=== PATIENT | female | born 1960 | race Two or more races ===

== ENCOUNTER 2024-10-31 19:22 | Emergency (ER) | payer MEDICARE, SELFPAY ==
[2024-10-31] VITALS (17 sets, daily range): BP systolic 128–158; BP diastolic 82–105; PULSE 67–94; TEMP 37.4; O2SAT 96–100; BMI 30.5
--- NOTE | 2024-10-31 19:28 | ECG_ITS ---
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
--- NOTE | 2024-10-31 19:51 | PC.NURSE ---
pt states after taking 2 Nitro CP has gone away.
[2024-10-31 20:20] LABS: Anion Gap 11.4; BUN Creatinine Ratio 8.6; Basophils Percent Auto 0.4 % (0.2-2.0); Calcium 9.2 mg/dL (8.5-10.1); Carbon Dioxide 29.2 mmol/L (21.0-32.0); Chloride 103 mmol/L (98-107); Estimated GFR (African America 47 (>=60 mL/min/1.73m^2); Estimated GFR (Non-African Ame 38 (>=60 mL/min/1.73m^2); Glucose 116 mg/dL (74-106); Hematocrit 41.9 % (36.0-48.0); Hemoglobin 13.8 g/dL (12.0-16.0); Immature Granulocytes Abs Auto 0.03 10^3/uL (0.00-0.03); Immature Granulocytes Pct Auto 0.4 % (0.0-0.5); Lymphocytes Absolute Auto 2.1 10^3/uL (1.2-3.8); Mean Corpuscular HGB Conc 32.9 g/dL (29.9-35.2); Mean Corpuscular Hemoglobin 28.1 pg (26.7-34.0); Mean Corpuscular Volume 85.3 fL (81.0-99.0); Monocytes Absolute Auto 0.5 10^3/uL (0.3-0.8); Monocytes Percent Auto 6.4 % (1.7-12.0); Neutrophils Percent Auto 65.8 % (43.0-75.0); Platelet Count 376 10^3/uL (150-450); Potassium 3.6 mmol/L (3.5-5.1); Red Blood Count 4.91 10^6/uL (4.20-5.40); Red Cell Distribution Width 14.6 % (11.0-15.0); Sodium 140 mmol/L (136-145); White Blood Count 7.6 10^3/uL (4.0-11.0)
[2024-10-31 20:21] LABS: Bilirubin Urine NEGATIVE (NEGATIVE); Blood Urine NEGATIVE (NEGATIVE); Clarity Urine CLEAR (CLEAR); Color Urine LT. YELLOW (YELLOW); Glucose Urine UA 250 mg/dL (NEGATIVE); Ketones Urine NEGATIVE (NEGATIVE); Leukocyte Esterase Urine MODERATE (NEGATIVE); Nitrite Urine NEGATIVE (NEGATIVE); Protein Urine NEGATIVE (NEG/TRACE); Specific Gravity Urine <=1.005 (1.005-1.025); Urobilinogen Urine 0.2 EU/dL (0.2-1.0); pH Urine 6.5 (5.0-9.0)
[2024-10-31 20:28] LABS: Ethanol <3 mg/dL; Troponin I High Sensitivity <4.0 pg/mL (4.0-51.3)
[2024-10-31 20:29] LABS: Bacteria Urine TRACE #/HPF (NONE SEEN); Mucus Urine NONE SEEN (NONE SEEN); RBC Urine 0-2 #/HPF (0-2)
[2024-10-31 20:30] LABS: Amorphous Sediment Urine FEW; Cast Seen? NONE SEEN #/LPF (NONE SEEN); Crystals Seen? Seen #/HPF (None Seen); Squamous Epithelial Cell Urine RARE #/LPF (NONE/RARE); Urine Culture Indicated YES-FRMC
[2024-10-31 20:34] LABS: Amphetamine Screen Urine NEGATIVE (NEGATIVE); Barbiturates Screen Urine NEGATIVE (NEGATIVE); Benzodiazepines Screen Urine NEGATIVE (NEGATIVE); Buprenorphine Screen Urine NEGATIVE (NEGATIVE); Cannabinoid Screen Urine POSITIVE (NEGATIVE); Cocaine Screen Urine NEGATIVE (NEGATIVE); Methadone Screen Urine NEGATIVE (NEGATIVE); Methamphetamines Screen Urine NEGATIVE (NEGATIVE); Opiate Screen Urine NEGATIVE (NEGATIVE); Oxycodone Screen Urine NEGATIVE (NEGATIVE); Phencyclidine Screen Urine NEGATIVE (NEGATIVE); Tricyclic Antidepressant Urine NEGATIVE (NEGATIVE)
--- NOTE | 2024-10-31 20:44 | ED_ITS ---
HPI HPI - General Adult General Chief complaint: Altered Mental Status Stated complaint: OTHER Time Seen by Provider: 10/31/24 19:23 Source: patient Mode of arrival: ambulance Limitations: no limitations History of Present Illness HPI narrative: 64-year-old female presents for chest pain. She was riding on a bus traveling from [place] to [place] and she developed this chest pain. She was walking up and down the aisle and somebody thought she seems confused. The patient states she was not confused but she had to go to the bathroom which she did. She had chest pain and she took 2 nitroglycerin and it went away completely and has not recurred. She has no complaints now. There was no injury. Related Data Home Medications ?Medication ?Instructions ?Recorded ?Confirmed amlodipine 2.5 mg tablet 2.5 mg PO DAILY 10/31/24 10/31/24 aspirin 81 mg tablet,delayed 81 mg PO DAILY 10/31/24 10/31/24 release (Adult Low Dose Aspirin) buspirone 30 mg tablet 30 mg PO BID 10/31/24 10/31/24 cyanocobalamin (vitamin B-12) 2,500 mcg sublingual DAILY 10/31/24 10/31/24 2,500 mcg sublingual tablet (Vitamin B-12) dapagliflozin propanediol 10 mg 10 mg PO DAILY 10/31/24 10/31/24 tablet (Farxiga) dicyclomine 20 mg tablet 20 mg PO BID 10/31/24 10/31/24 famotidine 20 mg tablet 20 mg PO BID 10/31/24 10/31/24 furosemide 20 mg tablet 20 mg PO DAILY 10/31/24 10/31/24 metformin 1,000 mg tablet 1,000 mg PO BID 10/31/24 10/31/24 methylphenidate HCl 72 mg 72 mg PO DAILY 10/31/24 10/31/24 tablet,extended release 24 hr mirtazapine 30 mg tablet 30 mg PO QPM 10/31/24 10/31/24 nitroglycerin 0.4 mg sublingual 0.4 mg sublingual Q5M PRN chest 10/31/24 10/31/24 tablet pain pregabalin 200 mg capsule (Lyrica) 200 mg PO TID 10/31/24 10/31/24 prochlorperazine maleate 10 mg 10 mg PO .Q4hrs PRN anxiety 10/31/24 10/31/24 tablet (Compazine) rosuvastatin 20 mg tablet 20 mg PO DAILY 10/31/24 10/31/24 semaglutide 2 mg/dose (8 mg/3 mL) 2 mg subcut QWEEK 10/31/24 10/31/24 subcutaneous pen injector (Ozempic) sennosides 17.2 mg tablet 17.2 mg PO DAILY 10/31/24 10/31/24 ziprasidone HCl 60 mg capsule 60 mg PO BID 10/31/24 10/31/24 (Geodon) Allergies Allergy/AdvReac Type Severity Reaction Status Date / Time gabapentin (From Neurontin) AdvReac Hallucinate Verified 10/31/24 19:34 Opioid HPI Opioid Management Most Recent Opioid Data: Ur Phencyclidine Scrn Negative (NEGATIVE) 10/31/24 19:35 10/15 03/10 Review of Systems ROS Narrative A ten point review of systems is negative except as noted above. PFSH PFSH Social History Little interest or pleasure in doing things: not at all Feeling down, depressed, or hopeless: not at all Exam Narrative Exam Narrative: Nurses note and vital signs reviewed and patient is not hypoxic. General: The patient appears well and in no apparent distress. Patient is resting comfortably on cart. Skin: Warm, dry, no pallor noted. There is no rash noted. Head: Normocephalic, atraumatic Eye: Normal conjunctiva, no drainage Ears, Nose, Mouth, and Throat: oral mucosa is moist. Nares patent. Cardiovascular: Regular Rate and Rhythm Respiratory: Patient is in no distress, no accessory muscle use, lungs are clear to auscultation, no wheezing, rales or rhonchi Back: non-tender GI: Soft and nontender Musculoskeletal: The patient has no evidence of calf tenderness, no pitting edema, symmetrical pulses noted bilaterally Neurological: A&O x4, normal speech Psychiatric: Cooperative Constitutional Vital Signs, click to edit/add: Last Vital Signs Temp 99.3 F 10/31/24 19:23 Pulse 67 10/31/24 21:00 Resp 29 H 10/31/24 20:20 BP 153/97 H 10/31/24 21:00 Pulse Ox 100 10/31/24 21:00 O2 Del Method Room Air 10/31/24 19:49 Course Vital Signs Vital signs: Vital Signs Temperature 99.3 F 10/31/24 19:23 Pulse Rate 83 10/31/24 19:23 Respiratory Rate 20 10/31/24 19:23 Blood Pressure 158/105 H 10/31/24 19:23 Pulse Oximetry 100 10/31/24 19:23 Oxygen Delivery Method Room Air 10/31/24 19:23 Temperature 99.3 F 10/31/24 19:23 Pulse Rate 67 10/31/24 21:00 Respiratory Rate 29 H 10/31/24 20:20 Blood Pressure 153/97 H 10/31/24 21:00 Pulse Oximetry 100 10/31/24 21:00 Oxygen Delivery Method Room Air 10/31/24 19:49 Medical Decision Making MDM Narrative Medical decision making narrative: Her workup including 2 sets of troponin is negative. She is asymptomatic and the rest of her workup is negative as well. Family friend is here to pick her up and take her home. He reports that she is acting normally. He is comfortable taking her home. Treatment diagnosis and follow-up were discussed with the patient and her friend. Differential Diagnosis Differential Diagnosis: Myocardial infarction, unstable angina, chest wall pain, anxiety Lab Data Lab results reviewed: Yes I reviewed the patient's lab results Labs: Lab Results 10/31/24 10/31/24 10/31/24 Range/Units 19:35 20:01 20:51 WBC 7.6 (4.0-11.0) 10^3/uL RBC 4.91 (4.20-5.40) 10^6/uL Hgb 13.8 (12.0-16.0) g/dL Hct 41.9 (36.0-48.0) % MCV 85.3 (81.0-99.0) fL MCH 28.1 (26.7-34.0) pg MCHC 32.9 (29.9-35.2) g/dL RDW 14.6 (11.0-15.0) % Plt Count 376 (150-450) 10^3/uL MPV 10.0 (9.5-13.5) fL Neut % (Auto) 65.8 (43.0-75.0) % Lymph % (Auto) 27.0 (20.5-60.0) % [place] % (Auto) 6.4 (1.7-12.0) % Eos % (Auto) 0.0 L (0.9-7.0) % Baso % (Auto) 0.4 (0.2-2.0) % Neut # (Auto) 5.0 (1.4-6.5) 10^3/uL Lymph # (Auto) 2.1 (1.2-3.8) 10^3/uL [place] # (Auto) 0.5 (0.3-0.8) 10^3/uL Eos # (Auto) 0.0 (0.0-0.7) 10^3/uL Baso # (Auto) 0.0 (0.0-0.1) 10^3/uL Abs Immat Gran (auto) 0.03 (0.00-0.03) 10^3/uL Imm/Tot Granulo (auto) 0.4 (0.0-0.5) % Sodium 140 (136-145) mmol/L Potassium 3.6 (3.5-5.1) mmol/L Chloride 103 (98-107) mmol/L Carbon Dioxide 29.2 (21.0-32.0) mmol/L Anion Gap 11.4 BUN 12.0 (7.0-18.0) mg/dL Creatinine 1.39 H (0.55-1.02) mg/dL Est GFR ( Amer) 47 L (>=60 mL/min/1.73m^2) Est GFR (Non-Af Amer) 38 L (>=60 mL/min/1.73m^2) BUN/Creatinine Ratio 8.6 Glucose 116 H (74-106) mg/dL Calcium 9.2 (8.5-10.1) mg/dL Troponin I High Sens <4.0 L <4.0 L (4.0-51.3) pg/mL Urine Color Lt. yellow (YELLOW) Urine Clarity Clear (CLEAR) Urine pH 6.5 (5.0-9.0) Ur Specific [place] <=1.005 A (1.005-1.025) Urine Protein Negative (NEG/TRACE) mg/dL Urine Glucose (UA) 250 A (NEGATIVE) mg/dL Urine Ketones Negative (NEGATIVE) mg/dL Urine Occult Blood Negative (NEGATIVE) Urine Nitrite Negative (NEGATIVE) Urine Bilirubin Negative (NEGATIVE) Urine Urobilinogen 0.2 (0.2-1.0) EU/dL Ur Leukocyte Esterase Moderate A (NEGATIVE) Urine RBC 0-2 (0-2) #/HPF Urine WBC 2-5 A (NONE SEEN) #/HPF Ur Squamous Epith Cells Rare (NONE/RARE) #/LPF Urine Crystals Seen A (None Seen) #/HPF Amorphous Sediment Few Urine Bacteria Trace A (NONE SEEN) #/HPF Urine Casts None seen (NONE SEEN) #/LPF Urine Mucus None seen (NONE SEEN) Ur Culture Indicated? Yes-[facility] [place] Urine Opiates Screen Negative (NEGATIVE) Ur Buprenorphine Scrn Negative (NEGATIVE) Ur Oxycodone Screen Negative (NEGATIVE) Urine Methadone Screen Negative (NEGATIVE) Ur Barbiturates Screen Negative (NEGATIVE) U Tricyclic Antidepress Negative (NEGATIVE) Ur Phencyclidine Scrn Negative (NEGATIVE) Ur Amphetamines Screen Negative (NEGATIVE) U Methamphetamines Scrn Negative (NEGATIVE) U Benzodiazepines Scrn Negative (NEGATIVE) Urine Cocaine Screen Negative (NEGATIVE) U Cannabinoids Screen Positive A (NEGATIVE) Ethanol Quant <3 mg/dL Imaging Data Chest x-ray, CT brain: Radiologist's impression: CT brain: Mild generalized brain volume loss consistent with age, no acute intracranial hemorrhage mass, infarct, or edema Chest x-ray: No acute process seen in the chest ECG Data Attestation: I personally reviewed and interpreted this ECG as follows: (EKG on my interpretation shows normal sinus rhythm with a rate of 81 and no acute change) Discharge Plan Discharge Chief Complaint: Altered Mental Status Clinical Impression: Chest pain Patient Disposition: Home, Self-Care Time of Disposition Decision: 21:32 Condition: Good Mode of Transportation: Private Vehicle Prescriptions / Home Meds: No Action Ozempic 2 mg/dose (8 mg/3 mL) pen injector 2 mg subcut QWEEK mirtazapine 30 mg tablet 30 mg PO QPM dapagliflozin propanediol [Farxiga] 10 mg tablet 10 mg PO DAILY dicyclomine 20 mg tablet 20 mg PO BID pregabalin [Lyrica] 200 mg capsule 200 mg PO TID metformin 1,000 mg tablet 1,000 mg PO BID rosuvastatin 20 mg tablet 20 mg PO DAILY furosemide 20 mg tablet 20 mg PO DAILY ziprasidone HCl [Geodon] 60 mg capsule 60 mg PO BID Rx Instructions: give with food (meal/snack) amlodipine 2.5 mg tablet 2.5 mg PO DAILY aspirin [Adult Low Dose Aspirin] 81 mg tablet,delayed release (DR/EC) 81 mg PO DAILY cyanocobalamin (vitamin B-12) [Vitamin B-12] 2,500 mcg tablet, sublingual 2,500 mcg sublingual DAILY sennosides 17.2 mg tablet 17.2 mg PO DAILY prochlorperazine maleate [Compazine] 10 mg tablet 10 mg PO .Q4hrs PRN (Reason: anxiety) buspirone 30 mg tablet 30 mg PO BID methylphenidate HCl 72 mg tablet extended release 24hr 72 mg PO DAILY famotidine 20 mg tablet 20 mg PO BID nitroglycerin 0.4 mg tablet, sublingual 0.4 mg sublingual Q5M PRN (Reason: chest pain) Print Language: Cymraes Instructions: Chest Pain (ED) Referrals: Physician,Non-Staff, MD [Primary Care Provider] - 1 week
[2024-10-31 21:25] LABS: Troponin I High Sensitivity <4.0 pg/mL (4.0-51.3)
== END 2024-10-31 21:50 | disposition home or self-care (01) ==
PROVIDERS: Emergency Provider Emergency Medicine
DX: R07.9 Chest pain, unspecified (principal); R82.998 Other abnormal findings in urine; Z79.899 Other long term (current) drug therapy
CPT/HCPCS: 36415; 70450; 71045; 80048; 80307; 80320; 81001; 84484; 85025; 87086; 93005; 99285